=== PATIENT | female | born 1985 | race Caucasian/White ===

== ENCOUNTER 2022-04-10 21:03 | Emergency (ER) | payer OTHER, SELFPAY ==
[2022-04-10 21:12] VITALS: BP 130/74; PULSE 105; RESP 18; TEMP 36.4; O2SAT 98; BMI 40.2
[2022-04-10 21:50] VITALS: BP 125/70; PULSE 99; RESP 18; TEMP 36.4; O2SAT 98
--- NOTE | 2022-04-10 21:56 | ED.GENADULT ---
HPI - General Adult General Chief complaint: Unspecified Complaint, Adult Stated complaint: DIABETIC WITH SWELLING/DISCOLORATION RT FOOT/LEG Time Seen by Provider: 04/10/22 21:20 History of Present Illness HPI narrative: 36-year-old woman presenting to the emergency department with pain redness and swelling of the right great toe. She has also had some spreading redness tracking into the inner lower leg with pain in the upper thigh as well. Has not noticed rash up there. She has not had a fever. No purulent discharge. This just started today. Noticed a little bit of blood there as well. Underlying history of diabetes with neuropathy. She notes rather slow wound healing historically. My initial assessment is that she has encountered an ingrown nail. She says she has never struggled with this apparently before. No treatments attempted. Recently on antibiotics for a cellulitis related to hidradenitis suppurativa apparently. Successfully treated with Bactrim. She notes a history of allergy to cephalosporins and doxycycline Related Data Home Medications Medication Instructions Recorded Confirmed diabetic supplies, miscellan. 04/12/22 04/12/22 metformin 500 mg tablet 500 mg PO 04/12/22 04/12/22 Previous Rx's Medication Instructions Recorded ciprofloxacin HCl 500 mg tablet 500 mg PO BID #20 tabs 04/12/22 (Cipro) Allergies Allergy/AdvReac Type Severity Reaction Status Date / Time Cephalosporins Allergy Mild Rash Verified 02/19/22 11:06 doxycycline Allergy Unknown Verified 02/19/22 11:06 Review of Systems Status of ROS: Reports: 6 or more systems reviewed and unremarkable except as noted in History and below [facility] Medical History Anxiety and depression Diabetes mellitus, type 2 Surgical History History of bilateral ligation of fallopian tubes (05/23/13) History of section (08/17/11) History of section (05/23/13) History of dilation and curettage (08/17/11) Social History Smoking Status: Never smoker Do you use any of these nicotine containing products: None How often do you have a drink containing alcohol: never AUDIT-C Alcohol total score: 0 Non-prescribed substance use: denies use Exam Narrative: Exam Narrative: Pleasant and nad. Breathing easily. Cardiovascular with elevated heartrate. Skin is warm and dry.There is erythema about the right great toe and mild swelling along the medial periungual fold. The nail corners are visible though the middle aspect of the nail along this medial edge may be the problematic point. This mild erythema does unfortunately extend up the medial lower leg in a lymphangitic spread up 1/3 of the lower leg. There is no drainage around the nail edge. The IP joint does not seem discretely involved. Const: Vital Signs, click to edit/add: Vital Signs - 24 hr 04/10/22 21:12 Temperature 97.5 F L Pulse Rate [Right Pulse Oximeter] 105 H Respiratory Rate 18 Blood Pressure [Ri ght Upper Arm] 130/74 Pulse Oximetry 98 Oxygen Delivery Me thod Room Air Documenting provider has reviewed patient's vital signs: yes Course Course Hospital Course: I did discuss wedge nail resection as more definitive treatment; Ms. Aguayo hopes to defer this in part given her historic slow healing presumably in the setting of neuropathy. Vital Signs Vital signs: Initial Vital Signs Temperature 97.5 F L 04/10/22 21:12 Temperature Source Temporal Artery Scan 04/10/22 21:12 Pulse Rate 105 H 04/10/22 21:12 Respiratory Rate 18 04/10/22 21:12 Blood Pressure 130/74 04/10/22 21:12 Blood Pressure Mean 92 04/10/22 21:12 Pulse Oximetry 98 04/10/22 21:12 Oxygen Delivery Method 04/10/22 21:12 Vital Signs Temperature 97.5 F L 04/10/22 21:12 Pulse Rate 105 H 04/10/22 21:12 Respiratory Rate 18 04/10/22 21:12 Blood Pressure 130/74 04/10/22 21:12 Pulse Oximetry 98 04/10/22 21:12 Oxygen Delivery Method 04/10/22 21:12 Temperature 97.5 F L 04/10/22 22:20 Pulse Rate 99 04/10/22 22:20 Respiratory Rate 18 04/10/22 22:20 Blood Pressure 125/70 04/10/22 22:20 Pulse Oximetry 98 04/10/22 21:50 Oxygen Delivery Method 04/10/22 21:50 Medical Decision Making MDM Narrative Medical decision making narrative: Confirmed allergies. Both antibiotics to which she is allergic would be ideal. Amoxicillin might be enough with soaking to address the likely offending organisms though diabetes complicates this. Was recently on Bactrim. I don't think we have to move to IV antibiotics yet. Discharge Plan Discharge Clinical Impression: Ingrowing toenail, Cellulitis Patient Disposition: Home, Self-Care Condition: Stable Additional Instructions: Soak your foot in warm Epsom salt water or warm soapy water 2-3 times daily over the next 4 days or so. Elevate for comfort. Try to elevate at rest in general. Be seen for fever, marked increase in pain, swelling, redness. I would expect a little trajectory spread over the next 36 hours but then should be improving. I am anticipating continued problems with ingrown nail here. I appreciate your concern about having wedge resection but this may still need to happen sooner than later. It looks like generally you are preserving the corners of your nail edge when trimming but this is actually growing in I think in the middle of the nail itself. If you do get an inkling of ingrowing nail in the future, begin soaking your toe/foot at least daily and trying to expose/elevate the corner of that nail overnight with a slightly rolled-up small piece of cotton ball as discussed, removing then in the morning. Avoid wearing shoes that impact this area at this time. Flip flops probably ideal at this moment but this make your feet more vulnerable in the setting of neuropathy. Continue to check your feet daily for injury. Amoxicillin from [facility] Stay well hydrated. Take 1000 mg of amoxicillin for your 1st dose. Take amoxicillin for 8 days. Prescriptions: No Action metformin 500 mg tablet 500 mg PO (DME) diabetic supplies, miscellan. Misc See Rx Instructions .ROUTE Rx Instructions: As directed ciprofloxacin HCl [Cipro] 500 mg tablet 500 mg PO BID Qty: 20 0RF Follow Up/Referrals: Aidan Chávez MD [Primary Care Provider] - Stand Alone Forms: [employer] Info Instructions
[2022-04-10 22:20] VITALS: BP 125/70; PULSE 99; RESP 18; TEMP 36.4
== END 2022-04-10 22:20 | disposition home or self-care (01) ==
PROVIDERS: Emergency Provider Family Medicine; PCP Family Medicine
DX: L60.0 Ingrowing nail (principal); L03.031 Cellulitis of right toe
CPT/HCPCS: 99283

== ENCOUNTER 2022-04-12 13:09 | Outpatient (CLI) | payer OTHER, SELFPAY ==
[2022-04-12 16:10] LABS: Chloride* 100 mmol/L (96-114); Potassium* 4.5 mmol/L (3.6-5.1); Sodium* 137 mmol/L (135-149)
[2022-04-12 16:12] LABS: Creatinine* 0.7 mg/dL (0.5-1.5); Estimated Glomerular Filt Rate 116 ml/min
[2022-04-12 16:13] LABS: Blood Urea Nitrogen* 10 mg/dL (5-24); Calcium* 9.1 mg/dL (8.4-10.6); Carbon Dioxide* 25 mmol/L (20-32); Glucose* 236 mg/dL (60-115)
== END 2022-04-12 13:10 | disposition home or self-care (01) ==
LOC: NFLDREF 13:10
PROVIDERS: PCP Family Medicine; Visit Provider Family Medicine
DX: E11.9 Type 2 diabetes mellitus without complications (principal); L03.90 Cellulitis, unspecified
CPT/HCPCS: 80048

== ENCOUNTER 2022-05-11 21:02 | Emergency (ER) | payer OTHER, SELFPAY ==
[2022-05-11 21:12] VITALS: BP 134/87; PULSE 96; RESP 16; TEMP 36.9; O2SAT 98; BMI 38.8
--- NOTE | 2022-05-11 21:46 | ED.SKABFB ---
HPI - Skin/Abscess/Foreign Bdy General Chief complaint: Skin/Abscess/Foreign Body Stated complaint: Cellulitis Time Seen by Provider: 05/11/22 21:22 History of Present Illness HPI narrative: This 36-year-old female comes in with pain and redness with swelling in her right great toe. She states that this is been present for the past couple months. She finished an antibiotic that was prescribed for this now 15 days ago. She states that the redness in swelling did not go way with antibiotic treatment. She does not report any fevers. She does state that she has some anxiety and when it increases then she has nausea and vomiting. She did have some vomiting today. She also states that her blood glucose has been markedly elevated. She states that her glucometer reading today was 790. She has type 2 diabetes and is taking metformin. Related Data Home Medications Medication Instructions Recorded Confirmed diabetic supplies, miscellan. 04/12/22 04/21/22 Previous Rx's Medication Instructions Recorded metformin 1,000 mg tablet 1,000 mg PO BIDWMEAL #60 tabs 04/21/22 levofloxacin 500 mg tablet 500 mg PO DAILY 10 days #10 tabs 05/11/22 Allergies Allergy/AdvReac Type Severity Reaction Status Date / Time Cephalosporins Allergy Mild Rash Verified 05/11/22 21:20 doxycycline Allergy Unknown Verified 05/11/22 21:20 Review of Systems Status of ROS: Reports: 10 or more systems reviewed and unremarkable except as noted in History and below Narrative: Constitutional: No fevers, no weight gain or loss. Eyes: No discharge. No vision changes. HENT: No congestion, no sore throat, no ear pain. Cardiovascular: No chest pain, no palpitations. Respiratory: No shortness of breath, no wheezes, no cough. Gastrointestinal: No abdominal pain, no diarrhea. Nausea and vomiting. Genitourinary: No dysuria, no hematuria. Musculoskeletal: Right great toe redness, warmth, and swelling. Skin: No rashes, no pruritis. Neurological: No dizziness, weakness, sensory change, speech change. Endo/Heme/Allergies: No bruising or bleeding. No polydipsia. Pysch: no suicidality, no anxiety, no insomnia. All other systems reviewed and are negative. [facility] Medical History Anxiety and depression Diabetes mellitus, type 2 Surgical History History of bilateral ligation of fallopian tubes (05/23/13) History of section (08/17/11) History of section (05/23/13) History of dilation and curettage (08/17/11) Social History Smoking Status: Current every day smoker Do you use any of these nicotine containing products: None How often do you have a drink containing alcohol: never AUDIT-C Alcohol total score: 0 Non-prescribed substance use: denies use Little interest or pleasure in doing things: more than half the days Feeling down, depressed, or hopeless: more than half the days Exam Narrative: Exam Narrative: Constitutional: Well-developed, well-nourished, no acute distress. HEENT: Normocephalic, atraumatic. Neck: Normal range of motion. Nontender. Supple. Heart: Regular. No murmurs. Normal rate. Intact distal pulses. Lungs: Clear to auscultation. No chest discomfort. No wheezes, rhonchi, or rales. Abdomen: Normal bowel sounds. Nontender. No rebound tenderness. Genitalia: Deferred. Back: No midline tenderness. Normal range of motion. Extremities: Patient is able to move her right great toe does not have distinct increase in pain. There is erythema around the toe itself in extending into the distal portion of her foot along the 1st metatarsal. There is also associated warmth and swelling. There is no sign of skin breakdown or pointing abscess. Skin: Intact. No rash. Warm. No erythema or pallor. Neurologic: No altered sensation. No weakness. Alert and oriented. Psychiatric: No suicidality. No anxiety or depression. No insomnia. Nursing notes and vitals signs are reviewed. Const: Vital Signs, click to edit/add: Vital Signs - 24 hr 05/11/22 21:12 Temperature 98.5 F Pulse Rate [Right Pulse Oximeter] 96 Respiratory Rate 16 Blood Pressure [Ri ght Upper Arm] 134/87 Pulse Oximetry 98 Oxygen Delivery Me thod Room Air Course Vital Signs Vital signs: Initial Vital Signs Temperature 98.5 F 05/11/22 21:12 Temperature Source Temporal Artery Scan 05/11/22 21:12 Pulse Rate 96 05/11/22 21:12 Respiratory Rate 16 05/11/22 21:12 Blood Pressure 134/87 05/11/22 21:12 Blood Pressure Mean 102 05/11/22 21:12 Blood Pressure Position Sitting 05/11/22 21:12 Pulse Oximetry 98 05/11/22 21:12 Oxygen Delivery Method 05/11/22 21:12 Vital Signs Temperature 98.5 F 05/11/22 21:12 Pulse Rate 96 05/11/22 21:12 Respiratory Rate 16 05/11/22 21:12 Blood Pressure 134/87 05/11/22 21:12 Pulse Oximetry 98 05/11/22 21:12 Oxygen Delivery Method 05/11/22 21:12 Temperature 98.5 F 05/11/22 21:12 Pulse Rate 96 05/11/22 21:12 Respiratory Rate 16 05/11/22 21:12 Blood Pressure 134/87 05/11/22 21:12 Pulse Oximetry 98 05/11/22 21:12 Oxygen Delivery Method 05/11/22 21:12 MDM - Skin/Abscess/Foreign Bdy MDM Narrative Medical decision making narrative: This patient comes in with redness, warmth, and swelling of her great toe as described above. She states that she is on her feet 15 hours a day with her employment. She also has diabetes and reports that her glucose was rather high earlier today. Blood glucose here returns at around 240. This is no where close to which she measured at 790 and makes me question whether her glucometer is accurate. Her white count is slightly elevated. She is not showing signs of systemic infection or sepsis. The patient did receive an IV dose of Levaquin 500 mg. She also received Toradol 30 mg intravenously. She feels okay to return home. I did describe signs and symptoms that would indicate a need for return and re-evaluation. Lab Data Labs: Lab Results 05/11/22 05/11/22 Range/Units 22:00 22:00 WBC 11.64 H (4.50-11.00) K/uL RBC 4.98 (4.00-5.20) m/uL Hgb 14.7 (12.0-16.0) gm/dL Hct 42.7 (33.0-51.0) % MCV 86 (80-100) fL MCH 30 (26-34) pg MCHC 34 (32-36) gm/dL RDW Coeff of Alexandrea 13.2 (11.5-15.5) % Plt Count 137 L (140-440) K/uL Neut % (Auto) 60.9 (42.0-72.0) % Lymph % (Auto) 32.7 (20-44) % [place] % (Auto) 4.2 (0.0-11.0) % Eos % (Auto) 1.6 (0.0-7.0) % Baso % (Auto) 0.2 (0.0-3.0) % Neut # (Auto) 7.10 H (1.7-7.0) K/uL Lymph # (Auto) 3.80 H (0.90-2.90) K/uL [place] # (Auto) 0.50 (0.00-0.90) K/UL Eos # (Auto) 0.20 (0.00-0.50) K/uL Baso # (Auto) 0.00 (0.00-0.30) K/uL Abs Immat Gran (auto) 0.05 (0.00-0.30) K/uL Sodium 134 L (135-149) mmol/L Potassium 3.8 (3.6-5.1) mmol/L Chloride 99 (96-114) mmol/L Carbon Dioxide 25 (20-32) mmol/L BUN 12 (5-24) mg/dL Creatinine 0.5 (0.5-1.5) mg/dL Estimated Creat Clear 124.21 Estimated GFR 125 ml/min Glucose 241 H (60-115) mg/dL Calcium 9.2 (8.4-10.6) mg/dL Discharge Plan Discharge Clinical Impression: Abrasion of great toe, right, infected Patient Disposition: Home, Self-Care Condition: Stable Additional Instructions: Take medication as prescribed. Follow up with MD or return if not improving or worsening symptoms happen. Prescriptions: New levofloxacin 500 mg tablet 500 mg PO DAILY 10 Days Qty: 10 0RF No Action (DME) diabetic supplies, miscellan. Misc See Rx Instructions .Route Rx Instructions: As directed metformin 1,000 mg tablet 1,000 mg PO BIDWMEAL Qty: 60 5RF Follow Up/Referrals: Aidan Chávez MD [Primary Care Provider] - Stand Alone Forms: [email or web address] Info Instructions
[2022-05-11] MEDS: 0.9 % SODIUM CHLORIDE 1000 ml 1,000 ML IV (22:06)
--- OUTSIDE RECORDS SUMMARY | 2022-05-11 22:12 | XMS_ITS | Clinical Summary ---
:1985 Author Organization [employer] [facility] [place] [address] Care Team Providers Name Role Phone Pcp, No Primary Care Provider Unavailable Allergies Active Allergy Reactions Severity Noted Date Comments Cephalosporins Rash 03/13/2018 Doxycycline Hives 03/13/2018 Medications Medication Sig Dispensed Refills Start Date End Date Status metFORMIN 0 04/21/2022 Active (GLUCOPHAGE) 1,000 mg tablet sertraline Take 1 tablet 60 tablet 0 03/13/2018 Disc ontinued (ZOLOFT) 50 mg by mouth every 2 (*Patient states tabletIndications morning. X 1 no longer : Anxiety week, then taking/No t on increase to 2 sendin g facility tabs daily. list) hydrOXYzine HCl Take 1 tablet 40 tablet 0 03/13/2018 Discontinued (ATARAX) 25 mg by mouth every 2 (*Patient states tabletIndications 6 hours if n o longer : Anxiety needed for taking/No t on Anxiety. sending fa cility list) Active Problems No known active problems Encounters Date Type Specialty Care Team Description 05/05/2022 Telephone Guy Cobian, DME Sup ply ([facility]) 04/27/2022 Office Visit Guy Cobian, Consult (Right great toe, DPM resolved cellulitis/Bila teral diabetic foot c heck) 04/27/2022 Travel from Last 3 Months Family History Medical History Relation Name Comments Diabetes type I Father Heart failure Father Diabetes type II Mother Relation Name Status Comments Father Mother Social History Tobacco Use Types Packs/Day Years Used Date Current Every Day Smoker Smokeless Tobacco: Never Used Tobacco Cessation: Ready to Quit: No; Co unseling Given: Yes Sex Assigned at Date Recorded Not on file COVID-19 Exposure Response Date Recorded In the last 10 days, have you been in contact with No / Unsu re 04/27/2022 1:10 PM CDT someone who was confirmed or suspected to have Coronavirus/COVID-19? Obstetrics History Last Filed Vital Signs Vital Sign Reading Time Taken Comments Blood Pressure 127/82 04/27/2022 1:29 PM CDT Pulse 96 04/27/2022 1:29 PM CDT Temperature - - Respiratory Rate - - Oxygen Saturation 98% 04/27/2022 1:29 PM CDT Inhaled Oxygen Concentration - - Weight 96.3 kg (212 lb 3.2 oz) 04/27/2022 1:29 PM CDT Height 158.8 cm (5' 2.5) 03/13/2018 12:48 PM CDT Body Mass Index 38.19 03/13/2018 12:48 PM CDT Plan of Treatment Upcoming Encounters Date Type Specialty Care Team Description 05/13/2022 Office Visit Herb Cobian, DPM [address] [phone] (Wo rk) Health Maintenance Due Date Last Done Comments Tdap 1997 Hepatitis C screening for age 0512/21/2004 18-79 Tetanus booster 2006 BMI (ht and wt on same day) for 03/13/2019 03/13/2018 age 18+ Depression screening for age 12+ 03/13/2019 03/13/2018, COVID-19 vaccine series (3 - 05/07/2021 12/05/2020, 021 Booster for Pfizer series) Influenza for age 9-49 04/15/2022 Pap test for age 21-65 03/17/2024 03/17/2021, 03/17/2021, 10/10/2013, Additional history exists Results Not on filefrom Last 3 Months Insurance Payer Benefit Plan / Subscriber ID Effective Dates Phone Addre ss Type Group [facility] [id number] 2019-Eran [address] [facility] [place] [address] Care Teams Cannon Pinion Adjuster Relationship Specialty Start Date End Date Pcp, No PCP - General 12/20/16 .
[2022-05-11] MEDS: KETOROLAC 30 MG/ML inj IVP (22:21)
[2022-05-11 22:49] LABS: Chloride* 99 mmol/L (96-114); Potassium* 3.8 mmol/L (3.6-5.1); Sodium* 134 mmol/L (135-149)
[2022-05-11 22:52] LABS: Carbon Dioxide* 25 mmol/L (20-32); Creatinine* 0.5 mg/dL (0.5-1.5); Est. Creatinine Clearance* 124.21; Estimated Glomerular Filt Rate 125 ml/min
[2022-05-11 22:53] LABS: Blood Urea Nitrogen* 12 mg/dL (5-24); Calcium* 9.2 mg/dL (8.4-10.6); Glucose* 241 mg/dL (60-115)
[2022-05-11 23:08] LABS: Basophils Percent Auto 0.2 % (0.0-3.0); Eosinophils Percent Auto 1.6 % (0.0-7.0); Hematocrit 42.7 % (33.0-51.0); Hemoglobin* 14.7 gm/dL (12.0-16.0); Immature Granulocytes Abs Auto 0.05 K/uL (0.00-0.30); Lymphocytes Percent Auto 32.7 % (20-44); Mean Corpuscular HGB Conc 34 gm/dL (32-36); Mean Corpuscular Hemoglobin 30 pg (26-34); Mean Corpuscular Volume 86 fL (80-100); Monocytes Percent Auto 4.2 % (0.0-11.0); Neutrophils Percent Auto 60.9 % (42.0-72.0); Platelet Count* 137 K/uL (140-440); RDW Coefficient of Variation % 13.2 % (11.5-15.5); Red Blood Count 4.98 m/uL (4.00-5.20); White Blood Count* 11.64 K/uL (4.50-11.00)
[2022-05-11 23:12] LABS: Slide Review Reflex No
== END 2022-05-11 23:42 | disposition home or self-care (01) ==
PROVIDERS: Emergency Provider Emergency Medicine Emergency Medical Services; PCP Family Medicine
DX: S90.411A Abrasion, right great toe, initial encounter (principal)
CPT/HCPCS: 36415; 80048; 85025; 87040; 96365; 96375; 99284; J1885; J1956; J7030

== ENCOUNTER 2023-04-05 09:18 | Emergency (ER) | payer OTHER, SELFPAY ==
[2023-04-05 09:24] VITALS: BP 168/96; PULSE 97; RESP 18; TEMP 36.6; O2SAT 98; BMI 40.2
--- NOTE | 2023-04-05 09:55 | ED.SKABFB ---
HPI - Skin/Abscess/Foreign Bdy General Time Seen by Provider: 09:55 Date Seen: 04/05/23 Chief complaint: Skin/Abscess/Foreign Body Stated complaint: abscess on upper thigh Time Seen by Provider: 04/05/23 09:47 Source: patient and RN notes reviewed Mode of arrival: ambulatory Limitations: no limitations History of Present Illness HPI narrative: Patient is a 37-year-old female coming in with complaint of right groin pain and irritation. She has not had any fevers. She has never had any MRSA. She does have hiradenitis suppurativa. She has been off metformin for about 6 months. She was unable to get into the clinic. Review of her medication allergies reveals cephalosporins and doxycline. Related Data Home Medications Medication Instructions Recorded Confirmed diabetic supplies, miscellan. 04/12/22 04/21/22 Previous Rx's Medication Instructions Recorded metformin 1,000 mg tablet 1,000 mg PO BIDWMEAL #60 tabs 04/21/22 amoxicillin 875 mg-potassium 1 tab PO BID #20 tabs 04/05/23 clavulanate 125 mg tablet Allergies Allergy/AdvReac Type Severity Reaction Status Date / Time Cephalosporins Allergy Mild Rash Verified 04/05/23 09:24 doxycycline Allergy Unknown Verified 04/05/23 09:24 Review of Systems Narrative: As per HPI. [facility] Medical History Anxiety and depression ?F41.9 - Anxiety disorder, unspecified (ICD-10) ?F32.A - Depression, unspecified (ICD-10) Diabetes mellitus, type 2 ?E11.9 - Type 2 diabetes mellitus without complications (ICD-10) Surgical History History of dilation and curettage (08/17/11) ?Z98.890 - Other specified postprocedural states (ICD-10) History of section (05/23/13) ?Z98.891 - History of uterine scar from previous surgery (ICD-10) History of section (08/17/11) ?Z98.891 - History of uterine scar from previous surgery (ICD-10) History of bilateral ligation of fallopian tubes (05/23/13) ?Z98.51 - Tubal ligation status (ICD-10) Social History Smoking Status: Current every day smoker Do you use any of these nicotine containing products: None How often do you have a drink containing alcohol: never AUDIT-C Alcohol total score: 0 Non-prescribed substance use: denies use Little interest or pleasure in doing things: more than half the days Feeling down, depressed, or hopeless: more than half the days Exam Const: Vital Signs, click to edit/add: Vital Signs - 24 hr 04/05/23 09:24 Temperature 98 F Pulse Rate [Pulse Oximeter] 97 Respiratory Rate 18 Blood Pressure [Ri ght Upper Arm] 168/96 H Pulse Oximetry 98 Oxygen Delivery Me thod Room Air Documenting provider has reviewed patient's vital signs: yes Common normals: no apparent distress, average body habitus, oriented x3, no limitations, healthy appearing and alert General appearance: cooperative, comfortable, well kempt and well developed HENMT: Common normals: normocephalic, head/scalp atraumatic and hearing grossly normal bilaterally Head and scalp: normocephalic and atraumatic Extremity: Other: She has a erythematous indurated area in the right inner thigh, no fluctuance. It is tender. It is about 6-8 cm in length, probably about 4 cm in width. Neuro: Common normals: oriented x3 Sensorium/orientation: alert Psych: Appearance: well kempt Course Course Hospital Course: Reviewed with patient potential for imaging to see if there is a deeper abscess. She did consider this but has decline. She has no history of MRSA. Discussed antibiotics and warm pack with close follow-up if this is worsening or develops abscess pocket. It sounds if she really does know when it is drainable. She has had issues with this given her underlying hiradenitis. She is afebrile, hemodynamically stable. I do not think any labs are necessary or are going to change our course at this point. Vital Signs Vital signs: Initial Vital Signs Temperature 98 F 04/05/23 09:24 Temperature Source Temporal Artery Scan 04/05/23 09:24 Pulse Rate 97 04/05/23 09:24 Respiratory Rate 18 04/05/23 09:24 Blood Pressure 168/96 H 04/05/23 09:24 Blood Pressure Mean 120 H 04/05/23 09:24 Blood Pressure Position Sitting 04/05/23 09:24 Pulse Oximetry 98 04/05/23 09:24 Oxygen Delivery Method Room Air 04/05/23 09:24 Vital Signs Temperature 98 F 04/05/23 09:24 Pulse Rate 97 04/05/23 09:24 Respiratory Rate 18 04/05/23 09:24 Blood Pressure 168/96 H 04/05/23 09:24 Pulse Oximetry 98 04/05/23 09:24 Oxygen Delivery Method Room Air 04/05/23 09:24 Temperature 98 F 04/05/23 09:24 Pulse Rate 97 04/05/23 09:24 Respiratory Rate 18 04/05/23 09:24 Blood Pressure 168/96 H 04/05/23 09:24 Pulse Oximetry 98 04/05/23 09:24 Oxygen Delivery Method Room Air 04/05/23 09:24 Discharge Plan Discharge Clinical Impression: Cellulitis Patient Disposition: Home, Self-Care Condition: Stable Instructions: Cellulitis (ED), Warm Compress or Soak (ED) Additional Instructions: Start oral antibiotics as soon as possible. Use warm compresses as much as able to to help with the infection. Have provided a note to be off work for the next 2 days. If this is at all worsening, does develop into an abscess area that could be drained, do recommend re-evaluation. Absolutely return if you develop fevers, the area of infection is extending or you are feeling worse. Recommend recheck in clinic within the next couple of days, can also review metformin/diabetes at that follow-up visit. Adequate control of diabetes is essential for your health and also in managing infections. Activity Level: Activity as Tolerated Prescriptions: New amoxicillin-pot clavulanate 875-125 mg tablet 1 tab PO BID Qty: 20 0RF No Action (DME) diabetic supplies, miscellan. Misc See Rx Instructions .Route Rx Instructions: As directed metformin 1,000 mg tablet 1,000 mg PO BIDWMEAL Qty: 60 5RF Follow Up/Referrals: Aidan Chávez MD [Primary Care Provider] - Stand Alone Forms: [facility] Info Instructions
== END 2023-04-05 11:17 | disposition home or self-care (01) ==
PROVIDERS: Emergency Provider Family Medicine; PCP Family Medicine
DX: L03.115 Cellulitis of right lower limb (principal)
CPT/HCPCS: 99283; 99284

== ENCOUNTER 2023-07-26 13:07 | Outpatient (CLI) | payer OTHER, SELFPAY | END 2023-07-26 13:08 | disposition home or self-care (01) | LOC: NFLDREF 07-28 09:28 | PROVIDERS: PCP Family Medicine; Referring Provider Family Medicine; Visit Provider Family Medicine | DX: E11.9 Type 2 diabetes mellitus without complications (principal); E78.5 Hyperlipidemia, unspecified; E66.9 Obesity, unspecified | CPT/HCPCS: 80053; 80061; 82043; 82570 ==

== ENCOUNTER 2023-09-20 18:03 | Emergency (ER) | payer OTHER, SELFPAY ==
[2023-09-20 18:39] VITALS: BP 145/83; PULSE 88; RESP 18; TEMP 36.6; O2SAT 99; BMI 40.2
--- NOTE | 2023-09-20 21:14 | CRLHL7_ITS ---
For Patients: As a result of the Century Cures Act, medical imaging exams and procedure reports are released immediately into your electronic medical record. You may view this report before your referring provider. If you have questions, please contact your health care provider. INDICATION: Headache. TECHNIQUE: CT head without contrast. COMPARISON: None. FINDINGS: CSF spaces: Within normal limits for age. Brain parenchyma: The leos-white differentiation is maintained. No sign of mass, hemorrhage, or midline shift. Skull base and calvarium: The visualized paranasal sinuses and mastoid air cells demonstrate no acute or significant findings. The visualized orbits are grossly unremarkable. No skull fractures. IMPRESSION: No acute intracranial abnormality. Please note that all CT scans at this facility use dose modulation, iterative reconstruction, and/or weight-based dosing when appropriate to reduce radiation dose to as low as reasonably achievable. Dictated by Aguilar Davison MD @ 09/20/2023 10:44:10 PM (Electronically Signed)
--- OUTSIDE RECORDS SUMMARY | 2023-09-20 21:18 | XMS_ITS | Clinical Summary ---
Author Name Unknown Organization [employer] [facility] Address [place] [address] Care Team Providers Care Store Shopper Name Role Phone Pcp, No Primary Care Provider Unavailabl e Allergies Active Allergy Reactions Criticality Noted Date Comments Cephalosporins Rash 03/13/2018 Doxycycline Hives 03/13/2018 Medications Medication Sig Dispensed Refills Start Date End Date Status metFORMIN (GLUCOPHAGE) 1,000 mg tablet 0 04/21/2022 Active Active Problems No known active problems Family History Medical History Relation Name Comments Diabetes type I Father Heart failure Father Diabetes type II Mother Relation Name Status Comments Father Mother Social History Tobacco Use Types Packs/Day Years Used Date Smoking Tobacco: Every Day Smokeless Tobacco: Never Tobacco Cessation:Ready to Q uit: No; Counseling Given: Yes PHQ-2 Answer Date Recorded PHQ-2 Score 6 10/16/2018 Sex and Gender Information Value Date Recorded Sex Assigned at Not on file Gender Identity Not on file Sexual Orientation Not on file Obstetrics History Last Filed Vital Signs Vital Sign Reading Time Taken Comments Blood Pressure 127/82 04/27/2022 1:29 PM CDT Pulse 96 04/27/2022 1:29 PM CDT Temperature - - Respiratory Rate - - Oxygen Saturation 98% 04/27/2022 1:29 PM CDT Inhaled Oxygen Concentration - - Weight 96.3 kg (212 lb 3.2 oz) 04/27/2022 1:29 P M CDT Height 158.8 cm (5' 2.5) 03/13/2018 12:48 PM CD T Body Mass Index 38.19 03/13/2018 12:48 PM CDT Plan of Treatment Health Maintenance Due Date Last Done Comments Tdap 1997 HIV for age 15-65 2001 Hepatitis C screening for age 18-79 2004 Tetanus booster 2006 BMI (ht and wt on same day) for age 18+ 03/13/2019 03/13/2018 Depression screening for age 12+ 03/13/2019 03/13/2018, 03/13/2018 COVID-19 vaccine series ( season) 2023 12/05/2020, 11/15/2020 Influenza for age 9-49 04/15/2023 Pap test for age 21-65 03/17/2024 , 03/17/2021, 10/10/2013, Additional history exists Pneumococcal series for age 6-64 Aged Out No longer eligible based on patient's age to complete this topic Care Teams Store Shopper Relationship Specialty Start Date End Date Pcp, No . PCP - General 12/20/16
[2023-09-20 21:37] LABS: Basophils Absolute Auto 0.02 K/uL (0.00-0.30); Basophils Percent Auto 0.2 % (0.0-3.0); Eosinophils Absolute Auto 0.41 K/uL (0.00-0.50); Hematocrit 43.5 % (33.0-51.0); Hemoglobin* 14.7 gm/dL (12.0-16.0); Immature Granulocytes Abs Auto 0.07 K/uL (0.00-0.30); Immature Granulocytes Pct Auto 0.7 %; Lymphocytes Absolute Auto 4.38 K/uL (0.90-2.90); Lymphocytes Percent Auto 42.2 % (20-44); Mean Corpuscular HGB Conc 34 gm/dL (32-36); Mean Corpuscular Hemoglobin 29 pg (26-34); Mean Corpuscular Volume 86 fL (80-100); Monocytes Percent Auto 4.5 % (0.0-11.0); Neutrophils Absolute Auto 5.02 K/uL (1.7-7.0); Neutrophils Percent Auto 48.4 % (42.0-72.0); Platelet Count* 173 K/uL (140-440); RDW Coefficient of Variation % 13.6 % (11.5-15.5); Red Blood Count 5.07 m/uL (4.00-5.20); White Blood Count* 10.37 K/uL (4.50-11.00)
[2023-09-20 21:39] LABS: Slide Review Reflex No
[2023-09-20 21:51] LABS: Chloride* 101 mmol/L (96-114); Potassium* 3.9 mmol/L (3.6-5.1); Sodium* 136 mmol/L (135-149)
[2023-09-20 21:54] LABS: Anion Gap 11 mEq/L (7-15); Blood Urea Nitrogen* 11 mg/dL (5-24); Carbon Dioxide* 24 mmol/L (20-32); Creatinine* 0.4 mg/dL (0.5-1.5); Est. Creatinine Clearance* 153.78; Estimated Glomerular Filt Rate 131 ml/min
[2023-09-20 21:55] LABS: Calcium* 9.1 mg/dL (8.4-10.6); Glucose* 207 mg/dL (60-115)
[2023-09-20 21:57] LABS: C Reactive Protein* 2.4 mg/dL (0.5-1.0)
[2023-09-20] MEDS: diphenhydrAMINE 50 MG/ML inj 25 MG IVP (21:58)
[2023-09-20] MEDS: KETOROLAC 15 MG/ML inj IVP (21:58)
[2023-09-20] MEDS: ONDANSETRON 2 MG/ML inj 4 MG IVP (21:59)
[2023-09-20] MEDS: 0.9 % SODIUM CHLORIDE 1000 ml 1,000 ML IV (21:59)
[2023-09-20 22:26] LABS: Erythrocyte SedimentationRate* 14 mm/hr (2-20)
--- NOTE | 2023-09-20 23:18 | ED_ITS ---
HPI - General Adult General Date Seen: 09/20/23 Chief complaint: Extremity Pain/Injury, Lower Stated complaint: High BS, vision issues, headache Time Seen by Provider: 09/20/23 21:03 Source: patient, RN notes reviewed and old records reviewed Mode of arrival: ambulatory Limitations: no limitations History of Present Illness HPI narrative: Patient is a 37-year-old woman who comes in for a couple of reasons. 1., she says for the past month she has been having cramping pain in her calves and burning pain on the bottom of her feet. She does have a longstanding history of poorly controlled diabetes and wonders about neuropathy. She also says for the past month or so she has had blurred vision and dizziness. She saw an eye doctor at the beginning of August and says that they noted a little bit of diabetic retinopathy but not significant. No other findings per her report. She says yesterday she developed headache on the right side of her head and she has had associated photophobia nausea vomiting today. She denies a prior history of migraine. Headache was gradual in onset and has persisted throughout the day today. She has not had fevers, sore throat, sinus congestion or pain, cough, or other upper respiratory symptoms. She has not had any unusual swelling or redness in her legs, does not describe significant pain with ambulation, symptoms bother her mostly at night when she is laying in bed although they were present during the day as well. She also expresses frustration about controlling her blood sugars. She had been off of medication completely for about a year when she saw primary care in July of 2023. She was started on metformin at that time, did not have any significant improvement in her blood sugars and so was started on long-acting insulin at her last appointment at the beginning of August. She tells me that she is now out to 52 units of long-acting insulin once daily and still has not noted any change in her blood sugars. Apparently the next step is to add short-acting insulin, but she is very frustrated that nothing seems to be working. Related Data Home Medications Medication Instructions Recorded Confirmed diabetic supplies, miscellan. 04/12/22 08/24/23 Previous Rx's Medication Instructions Recorded atorvastatin 20 mg tablet 20 mg PO QPM #90 tabs 07/27/23 flash glucose sensor (FreeStyle #1 ea 07/27/23 Cristela 2 Sensor kit) metformin 1,000 mg tablet 1,000 mg PO BIDWMEAL #180 tabs 07/27/23 insulin glargine 100 unit/mL (3 10 - 40 unit (0.1 - 0.4 mL) subcut 08/24/23 mL) subcutaneous pen (Lantus QDAY #15 mL Solostar U-100 Insulin) pen needle, diabetic 31 gauge x #100 ea 08/24/23 3/ (1st Tier Unifine Pentips Plus) gabapentin 100 mg capsule 100 mg PO TID #90 caps 09/20/23 Allergies Allergy/AdvReac Type Severity Reaction Status Date / Time Cephalosporins Allergy Mild Rash Verified 08/24/23 15:17 doxycycline Allergy Unknown Verified 08/24/23 15:17 Review of Systems Status of ROS: Reports: 10 or more systems reviewed and unremarkable except as noted in History and below [facility] Medical History Anxiety and depression ?F41.9 - Anxiety disorder, unspecified (ICD-10) ?F32.A - Depression, unspecified (ICD-10) Diabetes mellitus, type 2 ?E11.9 - Type 2 diabetes mellitus without complications (ICD-10) Surgical History History of dilation and curettage (08/17/11) ?Z98.890 - Other specified postprocedural states (ICD-10) History of section (05/23/13) ?Z98.891 - History of uterine scar from previous surgery (ICD-10) History of section (08/17/11) ?Z98.891 - History of uterine scar from previous surgery (ICD-10) History of bilateral ligation of fallopian tubes (05/23/13) ?Z98.51 - Tubal ligation status (ICD-10) Social History Smoking Status: Current every day smoker Do you use any of these nicotine containing products: None How often do you have a drink containing alcohol: never AUDIT-C Alcohol total score: 0 Non-prescribed substance use: denies use Little interest or pleasure in doing things: more than half the days Feeling down, depressed, or hopeless: more than half the days Exam Narrative: Exam Narrative: Vital signs as noted above. In general, an alert, well-appearing patient. Head: Normocephalic, atraumatic. Eyes: Pupils are equal reactive. Extraocular movements are full. Conjunctivae are normal. Optic discs are sharp bilaterally. ENT: Mucous membranes are moist. Throat is normal. Neck: Supple without lymphadenopathy. Heart: Regular rate and rhythm. No murmur or rub. Lungs: Clear bilaterally. No increased work of breathing, crackles or wheezes. Abdomen: Soft and nontender. No organomegaly. Extremities: Well perfused. No edema. No calf tenderness. Pulses intact. Neurologic: Patient is alert and oriented to person and place. Speech is fluent. Face is symmetric. Moves all extremities equally. Affect: Normal. Skin: Warm and dry. Well perfused. Const: Vital Signs, click to edit/add: Vital Signs - 24 hr 09/20/23 18:39 Temperature 97.9 F Pulse Rate [Pulse Oximeter] 88 Respiratory Rate 18 Blood Pressure [Ri ght Upper Arm] 145/83 H Pulse Oximetry 99 Oxygen Delivery Me thod Room Air Course Course ED Course: Firstly, we discussed her blood sugar management. I have encouraged her to proceed with short acting insulin as recommended by her primary doctor. If despite adequate doses of both long-acting and short-acting insulin she is not finding any improvement in her hemoglobin H 1 C, then I do think it would be reasonable to request a referral to endocrinology for further help. With regard to her legs, her exam is normal, I see no evidence of DVT or cellulitis, her symptoms do not sound consistent with claudication. I suspect she does have some peripheral neuropathy likely from diabetes and recommended a trial of gabapentin. With regard to her headache, it is unilateral, associated with photophobia and nausea, has certainly migraine sending features. She was treated with IV fluids, Toradol, Benadryl and Zofran with improvement. I did do a CT of the head given her recent problems with dizziness and blurred vision. By my review this is normal. Read as normal by Radiology as well. I checked basic labs, CBC shows normal white blood cell count 10.4, hemoglobin is 14.7. Metabolic panel is normal aside from elevated blood sugar of 207. Her creatinine is 0.4. CRP mildly elevated at 2.4. She is stable for discharge home at this time. Primary care follow-up next week as planned. Return for worsening. Gabapentin 100 mg t.i.d. to start, can titrate up with primary care next week if needed. Vital Signs Vital signs: Initial Vital Signs Temperature 97.9 F 09/20/23 18:39 Temperature Source Temporal Artery Scan 09/20/23 18:39 Pulse Rate 88 09/20/23 18:39 Pulse Rhythm Regular 09/20/23 18:39 Respiratory Rate 18 09/20/23 18:39 Blood Pressure 145/83 H 09/20/23 18:39 Blood Pressure Mean 103 09/20/23 18:39 Blood Pressure Position Sitting 09/20/23 18:39 Pulse Oximetry 99 09/20/23 18:39 Oxygen Delivery Method Room Air 09/20/23 18:39 Vital Signs Temperature 97.9 F 09/20/23 18:39 Pulse Rate 88 09/20/23 18:39 Respiratory Rate 18 09/20/23 18:39 Blood Pressure 145/83 H 09/20/23 18:39 Pulse Oximetry 99 09/20/23 18:39 Oxygen Delivery Method Room Air 09/20/23 18:39 Temperature 97.9 F 09/20/23 18:39 Pulse Rate 88 09/20/23 18:39 Respiratory Rate 18 09/20/23 18:39 Blood Pressure 145/83 H 09/20/23 18:39 Pulse Oximetry 99 09/20/23 18:39 Oxygen Delivery Method Room Air 09/20/23 18:39 Medications Administered Medications: Discontinued Medications Generic Name Dose Route Start Last Admin Trade Name Freq PRN Reason Stop Dose Admin Diphenhydramine HCl 25 mg 09/20/23 21:14 09/20/23 21:58 Diphenhydramine 50 Mg/Ml Inj IVP 09/20/23 21:15 25 mg ONCE ONE Administration Sodium Chloride 1,000 mls @ 1,000 mls/hr 09/20/23 21:15 09/20/23 22:52 0.9 % Sodium Chloride 1000 Ml IV 09/20/23 22:14 Infused .Q1H JOSH Infusion Ketorolac Tromethamine 15 mg 09/20/23 21:14 09/20/23 21:58 Ketorolac 15 Mg/Ml Inj IVP 09/20/23 21:15 15 mg ONCE ONE Administration Ondansetron HCl 4 mg 09/20/23 21:14 09/20/23 21:59 Ondansetron 2 Mg/Ml Inj IVP 09/20/23 21:15 4 mg ONCE ONE Administration Medical Decision Making Lab Data Labs: Lab Results 09/20/23 Range/Units 21:25 WBC 10.37 (4.50-11.00) K/uL RBC 5.07 (4.00-5.20) m/uL Hgb 14.7 (12.0-16.0) gm/dL Hct 43.5 (33.0-51.0) % MCV 86 (80-100) fL MCH 29 (26-34) pg MCHC 34 (32-36) gm/dL RDW Coeff of Alexandrea 13.6 (11.5-15.5) % Plt Count 173 (140-440) K/uL Neut % (Auto) 48.4 (42.0-72.0) % Lymph % (Auto) 42.2 (20-44) % Frio % (Auto) 4.5 (0.0-11.0) % Eos % (Auto) 4.0 (0.0-7.0) % Baso % (Auto) 0.2 (0.0-3.0) % Neut # (Auto) 5.02 (1.7-7.0) K/uL Lymph # (Auto) 4.38 H (0.90-2.90) K/uL Frio # (Auto) 0.50 (0.00-0.90) K/UL Eos # (Auto) 0.41 (0.00-0.50) K/uL Baso # (Auto) 0.02 (0.00-0.30) K/uL Abs Immat Gran (auto) 0.07 (0.00-0.30) K/uL Imm/Tot Granulo (auto) 0.7 % ESR 14 (2-20) mm/hr Sodium 136 (135-149) mmol/L Potassium 3.9 (3.6-5.1) mmol/L Chloride 101 (96-114) mmol/L Carbon Dioxide 24 (20-32) mmol/L Anion Gap 11 (7-15) mEq/L BUN 11 (5-24) mg/dL Creatinine 0.4 L (0.5-1.5) mg/dL Estimated Creat Clear 153.78 Estimated GFR 131 ml/min Glucose 207 H (60-115) mg/dL Calcium 9.1 (8.4-10.6) mg/dL C-Reactive Protein 2.4 H (0.5-1.0) mg/dL Discharge Plan Discharge Clinical Impression: Headache, Peripheral neuropathy Patient Disposition: Home, Self-Care Condition: Improved Instructions: Acute Headache (DC), Peripheral Neuropathy (ED) Additional Instructions: Start gabapentin as prescribed. Follow up with Dr. Chávez as planned and discuss further insulin dosing. If you continue to have elevated blood sugars despite baseline long-acting insulin as well as short-acting insulin, it would be reasonable to request a referral to Endocrinology for further help with managing your blood sugars. Your head CT is normal tonight. Your kidney function is also normal. Your blood sugar was 207 here. Activity Level: No Restrictions Discharge Diet: Regular Prescriptions: New gabapentin 100 mg capsule 100 mg PO TID Qty: 90 2RF No Action metformin 1,000 mg tablet 1,000 mg PO BIDWMEAL Qty: 180 3RF atorvastatin 20 mg tablet 20 mg PO QPM Qty: 90 3RF (DME) FreeStyle Cristela 2 Sensor Kit See Rx Instructions .Route Qty: 1 11RF Rx Instructions: As directed (DME) diabetic supplies, miscellan. Misc See Rx Instructions .Route Rx Instructions: As directed insulin glargine [Lantus Solostar U-100 Insulin] 100 unit/mL (3 mL) insulin pen 10 - 40 unit subcut QDAY Qty: 15 3RF Rx Instructions: Start 10 units daily and increase by 2 units every 2 days until fasting glucose is <130 (DME) pen needle, diabetic [1st Tier Unifine Pentips Plus] 31 gauge x 3/16 needle See Rx Instructions .Route Qty: 100 3RF Rx Instructions: As directed Follow Up/Referrals: Aidan Chávez MD [Primary Care Provider] - Stand Alone Forms: [employer] Info Instructions
== END 2023-09-20 23:00 | disposition home or self-care (01) ==
PROVIDERS: Emergency Provider Emergency Medicine; PCP Family Medicine
DX: R51.9 Headache, unspecified (principal); G62.9 Polyneuropathy, unspecified
CPT/HCPCS: 36415; 70450; 80048; 85025; 85651; 86140; 96374; 96375; 99284; J1200; J1885; J2405; J7030

== ENCOUNTER 2024-04-18 09:33 | Outpatient (CLI) | payer OTHER, SELFPAY ==
--- OUTSIDE RECORDS SUMMARY | 2024-04-18 09:35 | XMS_ITS | Clinical Summary ---
Author Organization [employer] [facility] Address [place], [place] [address] Care Team Providers Care Custom Decorating Consultant Name Role Phone Pcp, No Primary Care Provider Unavailabl e Allergies Active Allergy Reactions Criticality Noted Date Comments Cephalosporins Rash 03/13/2018 Doxycycline Hives 03/13/2018 Medications Medication Sig Dispensed Refills Start Date End Date Status metFORMIN (GLUCOPHAGE) 1,000 mg tablet 04/21/2022 Active Active Problems No known active [...] screening for age 12+ 03/13/2019 03/13/2018, 03/13/2018 Pap test for age 21-65 03/17/2024 , 03/17/2021, 10/10/2013, Additional history exists COVID-19 vaccine series ( season) 2024 12/05/2020, 11/15/2020 Influenza for age 9-49 04/15/2024 Pneumococcal series for age 6-64 Aged Out No longer eligible based on patient's age to complete this topic Procedures Procedure Name Priority Date/Time Associated Diagnosis Comments MECHANICAL ENGINEERING OFFICER THIN PREP PAP SCREEN IMAGED Routine 03/17/2021 12:00 PM CDT from Last 3 Months or Most Recently Relevant to Health Maintenance Results * (ABNORMAL) MECHANICAL ENGINEERING OFFICER THIN PREP PAP SCREEN IMAGED (03/17/2021 12:00 PM CDT) Case Report Gynecologic Cytology Report ? Case: [id number] ? Authorizing Provider: ??Alix Mosher MD ?? Collected: ? 03/17/2021 1200 ? Ordering Location: ? [facility] ?Received: ?03/18/2021 0754 ? First Screen: ?Ervin Veloz ? Pathologist: ? Mesha Meek MD ? Specimen: ?MECHANICAL ENGINEERING OFFICER ThinPrep Vial Screening, Cervical/Vagina l ? 03/31/2021 9:06 AM [facility] INTERPRETATION/ RESULT ATYPICAL SQUAMOUS CELLS OF UNDETERMINED SIGNIFICANCE (ASCUS)(A) (none) 03/31/2021 9:06 AM [facility] IMEN ADEQUACY Satisfactory for evaluation Endocervical component present 03/31/2021 9:06 AM [facility] HPV REQUEST HPV and PAP 03/31/2021 9:06 AM [facility] Date of LMP 12/24/2020 03/31/2021 9:06 AM [facility] Additional Information 03/31/2021 9:06 AM [facility] Comment: Interpreted at [facility] - [address], [place] [address] Automated Review Successful 03/31/2021 9:06 AM [facility] Comment:Specimen processed s uccessfully by automated sheet metal welder device, ThinPrep Imaging System, [email or web address] ANCILLARY TESTING MECHANICAL ENGINEERING OFFICER HPV Ordered, Please see separate report 03/31/2021 9:06 AM [facility] Note The pap test is a screening technique, not a diagnostic procedure. It is used primarily to screen for squamous cancers and precursor lesions. Published studies have shown that it is subject to both false negative and false positive results. The pap test should not be used as the sole means to diagnose or exclude pre-malignant and malignant lesions. 03/31/2021 9:06 AM CDT [facility] Other (Cervical/Vagina l) 03/17/2021 12:00 PM CDT 03/18/2021 7:54 AM CDT Alix Mosher MD PATHOLOGY/CYTOLOG Y [facility] [address] [place] [address], from Last 3 Months or Most Recently Relevant to Health Maintenance Care Teams Custom Decorating Consultant Relationship Specialty Start Date End Date Pcp, No . PCP - General 12/20/16
== END 2024-04-18 09:34 | disposition home or self-care (01) ==
LOC: NFLDREF 09:34
PROVIDERS: PCP Family Medicine; Visit Provider Internal Medicine
DX: E11.65 Type 2 diabetes mellitus with hyperglycemia (principal); Z79.4 Long term (current) use of insulin
CPT/HCPCS: 82043; 82570

== ENCOUNTER 2024-07-24 13:15 | Outpatient (CLI) | payer OTHER, SELFPAY | END 2024-07-24 13:16 | disposition home or self-care (01) | LOC: NFLDREF 07-26 13:31 | PROVIDERS: PCP Internal Medicine; Referring Provider Internal Medicine; Visit Provider Internal Medicine | DX: E11.9 Type 2 diabetes mellitus without complications (principal); E78.5 Hyperlipidemia, unspecified | CPT/HCPCS: 80061; 82043; 82570 ==

== ENCOUNTER 2024-08-22 23:02 | Emergency (ER) | payer OTHER, SELFPAY ==
[2024-08-22 23:15] VITALS: BP 154/90; PULSE 83; RESP 16; TEMP 36.7; O2SAT 99; BMI 40.2
--- OUTSIDE RECORDS SUMMARY | 2024-08-23 00:52 | XMS_ITS | Clinical Summary ---
Author Organization [employer] [facility] Address [place], [place] [address] Care Team Providers Care Supervisor Jewelry Department Name Role Phone Pcp, No Primary Care Provider Unavailabl e Allergies Active Allergy Reactions Criticality Noted Date Comments Cephalosporins Rash 03/13/2018 Doxycycline Hives 03/13/2018 Medications metFORMIN (GLUCOPHAGE) 1,000 mg tablet 04/21/2022 Active [...] Answer Date Recorded PHQ-2 Score 6 10/16/2018 Comments Unknown Sex and Gender Information Value Date Recorded Sex Assigned at Not on file Legal Sex Female 7:05 AM [employer] WORK[employer] Gender Identity Not on file Sexual Orientation [...] 10/10/2013, Additional history exists COVID-19 vaccine series (2023- season) 2024 12/05/2020, 11/15/2020 Influenza for age 9-49 04/15/2024 Pneumococcal series for age 6-49 Aged Out No longer eligible based on patient's age to complete this topic Procedures Procedure Name Priority Date/Time Associated Diagnosis Comments MAINTENANCE SHOP MANAGER THIN PREP PAP SCREEN IMAGED Routine 03/17/2021 12:00 PM CDT from Last 3 Months or Most Recently Relevant to Health Maintenance Results * (ABNORMAL) MAINTENANCE SHOP MANAGER THIN PREP PAP SCREEN IMAGED (03/17/2021 12:00 PM CDT) Case Report Gynecologic Cytology Report Case: [id number] Authorizing Provider: Alix Mosher MD Collected: 03/17/2021 1200 Ordering Location: [facility] Received: 03/18/2021 0754 First Screen: Ervin Veloz Pathologist: Mesha Meek MD Specimen: MAINTENANCE SHOP MANAGER ThinPrep Vial Screening, Cervical/Vagina l 03/31/2021 9:06 AM CDT [facility] INTERPRETATION/ RESULT ATYPICAL SQUAMOUS CELLS OF UNDETERMINED SIGNIFICANCE (ASCUS)(A) (none) 03/31/2021 9:06 AM CDT [facility] IMEN ADEQUACY Satisfactory for evaluation Endocervical component present 03/31/2021 9:06 AM CDT [facility] HPV REQUEST HPV and PAP 03/31/2021 9:06 AM CDT [facility] Date of LMP 12/24/2020 03/31/2021 9:06 AM CDT [facility] Additional Information 03/31/2021 9:06 AM T [facility] Comment: Interpreted at [facility] - [address], [place] [address] Automated Review Successful 03/31/2021 9:06 AM T [facility] Comment:Specimen processed s uccessfully by automated cash management officer device, ThinPrep Imaging System, [employer] ANCILLARY TESTING MAINTENANCE SHOP MANAGER HPV Ordered, Please see separate report 03/31/2021 9:06 AM T [facility] Note The pap test is a screening technique, not a diagnostic procedure. It is used primarily to screen for squamous cancers and precursor lesions. Published studies have shown that it is subject to both false negative and false positive results. The pap test should not be used as the sole means to diagnose or exclude pre-malignant and malignant lesions. 03/31/2021 9:06 AM T [facility] Other (Cervical/Vagina l) 03/17/2021 12:00 PM CDT 03/18/2021 7:54 AM CDT Alix Mosher MD PATHOLOGY/CYTOLOGY Final Result [facility] [address] [place] [address], [place] from Last 3 Months or Most Recently Relevant to Health Maintenance [place] [address] [address] Care Teams Supervisor Jewelry Department Relationship Specialty Start Date End Date Pcp, No . PCP - General 12/20/16
--- OUTSIDE RECORDS SUMMARY | 2024-08-23 00:52 | XMS_ITS | Continuity of Care Document ---
Author Name [facility] User [email or web address] Address Unknown Organization Unknown Address Unknown Procedures FILTER APPLIED:Only known Procedures with Onset Date within the last 5 years Procedure Date Procedure Provider Alex ken Information Status COMPLETE CBC W/AUTO DIFF WBC (45220) Completed TX/PRO/DX INJ NEW DRUG ADDON (77399) Completed THER/PROPH/DIAG INJ IV PUSH (47965) Completed RBC SED RATE NONAUTOMATED (66589) Completed CT HEAD/BRAIN W/O DYE (17604) Completed METABOLIC PANEL TOTAL CA (80650) Completed EMERGENCY DEPT VISIT MOD MDM (86217) Completed C-REACTIVE PROTEIN (54748) Completed ROUTINE VENIPUNCTURE (75628) Completed ASSAY OF URINE CREATININE (73891) Completed UR ALBUMIN QUANTITATIVE (06233) Completed LIPID PANEL (95417) Comp leted COMPREHEN METABOLIC PANEL (87561) Completed Encounters FILTER APPLIED:Only known Encounters with Admission Date within the last 5 years Encounter Location Admission Discharge Billing Code Grades 7 And 8 Visiting Teacher Elinor cav[facility]os [facility]
[2024-08-23] MEDS: SULFA/TRIMETHOPRIM 800/160 1 TAB PO (01:01)
--- NOTE | 2024-08-23 05:00 | ED.GENADULT ---
HPI - General Adult General Date Seen: 08/23/24 Chief complaint: Neck Injury/Pain Stated complaint: abscess on neck/difficult to swallow Time Seen by Provider: 08/23/24 00:55 Source: patient Mode of arrival: ambulatory Limitations: no limitations History of Present Illness HPI narrative: Patient is a 38-year-old poorly controlled type 2 diabetic who comes in with an erythematous swollen lump on her anterior neck. She was seen in urgent care for five days ago for this lump and was told that it was her hidradenitis suppurativa. She was not given any antibiotics. She is instructed to go home and apply hot packs. The area has gotten more painful and swollen each day. She denies fevers or chills. She has pain with swallowing. She has had previous lesions in her axilla and groin that have had to be drained. She was recently on sulfa off for a diabetic foot ulcer but has been off the antibiotics for over a week. She gets yeast infections every time she takes antibiotics. He tells me that her blood sugars have been between 304 100. Her Lantus dose was recently increased and she sometimes takes as many as 30 units of NovoLog and her blood sugars barely come down. Her PCP is Dr. Jacinto. 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 In the past she has drained previous abscesses on her own. Her A1c has been over 12% for well over a year. Related Data Home Medications ?Medication ?Instructions ?Recorded ?Confirmed diabetic supplies, miscellan. 04/12/22 08/18/24 Previous Rx's ?Medication ?Instructions ?Recorded metformin 1,000 mg tablet 1,000 mg PO BIDWMEAL #180 tabs 07/27/23 pen needle, diabetic 31 gauge x #100 ea 08/24/2310/28 (1st Tier Unifine Pentips Plus) flash glucose sensor (FreeStyle #10 ea 04/25/24 Cristela 2 Sensor kit) nystatin 100,000 unit/gram topical 1 applic topical BID #30 grams 05/09/24 cream fluconazole 150 mg tablet 150 mg PO QWEEK 4 doses #4 tabs 06/19/24 insulin aspart U-100 100 unit/mL 10 - 20 unit (0.1 - 0.2 mL) subcut 07/23/24 (3 mL) subcutaneous pen (Novolog BIDWMEAL #15 mL FlexPen U-100 Insulin aspart) insulin glargine 100 unit/mL (3 85 unit (0.85 mL) subcut QDAY #30 08/10/24 mL) subcutaneous pen (Lantus mL Solostar U-100 Insulin) fluconazole 100 mg tablet 100 mg PO .QOD #7 tabs 08/23/24 sulfamethoxazole 800 1 tab PO BID #20 tabs 08/23/24 mg-trimethoprim 160 mg tablet (Bactrim DS) Allergies Allergy/AdvReac Type Severity Reaction Status Date / Time Cephalosporins Allergy Mild Rash Verified 08/18/24 12:55 doxycycline Allergy Unknown Verified 08/18/24 12:55 Review of Systems Narrative: Chronic painful diabetic neuropathy. Recurrent yeast infections. Review of systems is outlined above otherwise noted to be negative. PFSH PFS Medical History Hypertension ?I10 - Essential (primary) hypertension (ICD-10) Anxiety and depression ?F41.9 - Anxiety disorder, unspecified (ICD-10) ?F32.A - Depression, unspecified (ICD-10) Diabetes mellitus, type 2 ?E11.9 - Type 2 diabetes mellitus without complications (ICD-10) Surgical History History of dilation and curettage (08/17/11) ?Z98.890 - Other specified postprocedural states (ICD-10) History of section (05/23/13) ?Z98.891 - History of uterine scar from previous surgery (ICD-10) History of section (08/17/11) ?Z98.891 - History of uterine scar from previous surgery (ICD-10) History of bilateral ligation of fallopian tubes (05/23/13) ?Z98.51 - Tubal ligation status (ICD-10) Social History Smoking Status: Current every day smoker Do you use any of these nicotine containing products: None How often do you have a drink containing alcohol: never AUDIT-C Alcohol total score: 0 Non-prescribed substance use: denies use Exam Narrative: Exam Narrative: Vitals noted. HEENT: Conjunctiva clear. Tympanic membranes are pearly white bilaterally. Posterior pharynx is clear without erythema or exudate. Neck is supple without adenopathy, thyromegaly. Lungs: Clear to auscultation in all roberto. No wheezes, rales, rhonchi. Heart: Regular rate and rhythm without murmur. Abdomen: Soft and nontender. No guarding, rigidity, rebound. Bowel sounds are normal. No palpable masses. Extremities: No cyanosis or edema. Good distal pulses. Skin: His an abscess just above the sternal notch that is 2 cm x 1.5 cm. This is superficial. No significant regional adenopathy. It is hot, indurated, tender. Neurologic: She has dense stocking-glove distribution neuropathy. Const: Vital Signs, click to edit/add: Vital Signs - 24 hr 08/22/24 23:15 Temperature 98.1 F Pulse Rate [Pulse Oximeter] 83 Respiratory Rate 16 Blood Pressure [Ri ght Upper Arm] 154/90 H Pulse Oximetry 99 Oxygen Delivery Me thod Room Air Course Course ED Course: Patient was seen and examined. The lesion on her neck is obviously an abscess. It is not in the typical location for a hidradenitis suppurativa lesion. We discussed that this will not get better with antibiotics alone and she is in agreement to have this opened and drained. Without anesthesia I made a small opening with a #11 blade. Approximately 5-10 mL of pus was drained from the abscess. A culture is taken. She tolerated this well. A sterile dressing is applied. Vital Signs Vital signs: Initial Vital Signs Temperature 98.1 F 08/22/24 23:15 Temperature Source Temporal Artery Scan 08/22/24 23:15 Pulse Rate 83 08/22/24 23:15 Respiratory Rate 16 08/22/24 23:15 Blood Pressure 154/90 H 08/22/24 23:15 Blood Pressure Mean 111 H 08/22/24 23:15 Blood Pressure Position Sitting 08/22/24 23:15 Pulse Oximetry 99 08/22/24 23:15 Oxygen Delivery Method Room Air 08/22/24 23:15 Vital Signs Temperature 98.1 F 08/22/24 23:15 Pulse Rate 83 08/22/24 23:15 Respiratory Rate 16 08/22/24 23:15 Blood Pressure 154/90 H 08/22/24 23:15 Pulse Oximetry 99 08/22/24 23:15 Oxygen Delivery Method Room Air 08/22/24 23:15 Temperature 98.1 F 08/22/24 23:15 Pulse Rate 83 08/22/24 23:15 Respiratory Rate 16 08/22/24 23:15 Blood Pressure 154/90 H 08/22/24 23:15 Pulse Oximetry 99 08/22/24 23:15 Oxygen Delivery Method Room Air 08/22/24 23:15 Medications Administered Medications: Discontinued Medications Generic Name Dose Route Start Last Admin Trade Name Thomas PRN Reason Stop Dose Admin Trimethoprim/Sulfamethoxazole 1 tab 08/23/24 00:42 08/23/24 01:01 Sulfa/Trimethoprim 800/160 1 Tab PO 08/23/24 00:43 1 tab ONCE ONE Administration Discharge Plan Discharge Clinical Impression: Abscess of skin of neck, Type 2 diabetes mellitus Patient Disposition: Home, Self-Care Condition: Improved Additional Instructions: Hot packs and gentle squeezing. Tylenol and Ibuprofen for pain. Bactrim DS twice daily for 10 days. Diflucan for yeast infection. Follow up with PCP in 1 week. Increase Lantus to 50 units twice a day. You will need increased amounts of Novolog until this infection is better. Prescriptions: New fluconazole 100 mg tablet 100 mg PO .QOD Qty: 7 0RF sulfamethoxazole-trimethoprim [Bactrim DS] 800-160 mg tablet 1 tab PO BID Qty: 20 0RF No Action metformin 1,000 mg tablet 1,000 mg PO BIDWMEAL Qty: 180 3RF fluconazole 150 mg tablet 150 mg PO QWEEK Qty: 4 0RF Rx Instructions: Take one tablet every week for four weeks. (DME) diabetic supplies, miscellan. Misc See Rx Instructions .Route Rx Instructions: As directed (DME) pen needle, diabetic [1st Tier Unifine Pentips Plus] 31 gauge x 3/16 needle See Rx Instructions .Route Qty: 100 3RF Rx Instructions: As directed (DME) FreeStyle Cristela 2 Sensor Kit See Rx Instructions .Route Qty: 10 1RF Rx Instructions: As directed nystatin 100,000 unit/gram cream 1 applic topical BID Qty: 30 0RF insulin aspart U-100 [Novolog FlexPen U-100 Insulin] 100 unit/mL (3 mL) insulin pen 10 - 20 unit subcut BIDWMEAL Qty: 15 2RF insulin glargine [Lantus Solostar U-100 Insulin] 100 unit/mL (3 mL) insulin pen 85 unit subcut QDAY Qty: 30 1RF Follow Up/Referrals: Dennis Jacinto MD [Primary Care Provider] - Stand Alone Forms: MyHealth Info Instructions
== END 2024-08-23 01:00 | disposition home or self-care (01) ==
PROVIDERS: Emergency Provider Family Medicine; PCP Internal Medicine
DX: L02.11 Cutaneous abscess of neck (principal); E11.9 Type 2 diabetes mellitus without complications
CPT/HCPCS: 10060; 87070; 99282; 99283; A9270

== ENCOUNTER 2024-11-07 12:35 | Outpatient (CLI) | payer OTHER, SELFPAY | END 2024-11-07 12:36 | disposition home or self-care (01) | PROVIDERS: PCP Internal Medicine; Visit Provider Family Medicine | DX: I10 Essential (primary) hypertension (principal); E78.5 Hyperlipidemia, unspecified; E11.29 Type 2 diabetes mellitus with other diabetic kidney complication; E66.9 Obesity, unspecified; R80.9 Proteinuria, unspecified; Z79.4 Long term (current) use of insulin | CPT/HCPCS: 80048; 83690; 83735 ==

== ENCOUNTER 2025-01-23 12:55 | Outpatient (CLI) | payer OTHER, SELFPAY | END 2025-01-23 12:56 | disposition home or self-care (01) | LOC: FBOREF 12:56 | PROVIDERS: PCP Family Medicine; Visit Provider Family Medicine | DX: I10 Essential (primary) hypertension (principal) | CPT/HCPCS: 80048 ==

== ENCOUNTER 2025-02-12 23:22 | Emergency (ER) | payer OTHER, SELFPAY ==
--- OUTSIDE RECORDS SUMMARY | 2025-02-12 23:24 | XMS_ITS | Clinical Summary ---
Author Organization [facility] Address [address] [place] [id number] Care Team Providers Care Oncology Pharmacist Name Role Phone Pcp, No Primary Care [...] on file Legal Sex Female 7:05 AM [employer] Gender Identity Not on file Sexual Orientation [...] Health Maintenance Due Date Last Done Comments Tetanus booster 1997 HIV for age 15-65 2001 Hepatitis C screening for age 18-79 2004 Hepatitis B series for 19+ (1 of 3 - 19+ 3-dose series) 2005 BMI (ht and wt on same day) for age 18+ 03/13/2019 03/13/2018 Depression screening for age 12+ 03/13/2019 03/13/2018, 03/13/2018 Pap test for age 21-65 03/17/2024 , 03/17/2021, 10/10/2013, Additional history exists COVID-19 vaccine series (2023- season) 2024 12/05/2020, 11/15/2020 Influenza Vaccine (#1) 2025 Pneumococcal series for age 6-49 Aged Out No longer eligible based on patient's age to complete this topic Procedures Procedure Name Priority Date/Time Associated Diagnosis Comments HEART COORDINATOR THIN PREP PAP SCREEN IMAGED Routine 03/17/2021 12:00 PM CDT from Last 3 Months or Most Recently Relevant to Health Maintenance Results * (ABNORMAL) HEART COORDINATOR THIN PREP PAP SCREEN IMAGED (03/17/2021 12:00 PM CDT) Case Report Gynecologic Cytology Report Case: [id number] Authorizing Provider: Alix Mosher MD Collected: 03/17/2021 1200 Ordering Location: [facility] Received: 03/18/2021 0754 First Screen: Ervin Veloz Pathologist: Mesha Meek MD Specimen: HEART COORDINATOR ThinPrep Vial Screening, Cervical/Vagina l 03/31/2021 9:06 AM CDT [facility] INTERPRETATION/ RESULT ATYPICAL SQUAMOUS CELLS OF UNDETERMINED SIGNIFICANCE (ASCUS)(A) (none) 03/31/2021 9:06 AM CDT [facility] at 0905 CDT SPECIMEN ADEQUACY Satisfactory for evaluation Endocervical component present 03/31/2021 9:06 AM CDT [facility] HPV REQUEST HPV and PAP 03/31/2021 9:06 AM CDT [facility] Date of LMP 12/24/2020 03/31/2021 9:06 AM CDT [facility] Additional Information 03/31/2021 9:06 AM T [facility] Comment: Interpreted at [facility] - [address], [place] [address] Automated Review Successful 03/31/2021 9:06 AM T [facility] Comment:Specimen processed s uccessfully by automated ramp boss device, ThinPrep Imaging System, [employer] ANCILLARY TESTING HEART COORDINATOR HPV Ordered, Please see separate report 03/31/2021 9:06 AM T [facility] Note The pap test is a [...] and malignant lesions. 03/31/2021 9:06 AM T [facility] Other (Cervical/Vagina l) 03/17/2021 12:00 PM CDT 03/18/2021 7:54 AM CDT us Alix Mosher MD PATHOLOGY/CYTOLOGY Final Result [facility] [address] [place] [address], [place] from Last 3 Months or Most Recently Relevant to Health Maintenance Insurance [facility] Care Teams Oncology Pharmacist Relationship Specialty Start Date End Date Pcp, No . PCP - General 12/20/16
[2025-02-12 23:31] VITALS: BP 178/97; PULSE 87; RESP 16; TEMP 35.6; O2SAT 98; BMI 39.3
--- NOTE | 2025-02-12 23:36 | ED_ITS ---
HPI - General Adult General Time Seen by Provider: 23:36 Date Seen: 02/12/25 Chief complaint: Hypertension Stated complaint: 224/158 BP Time Seen by Provider: 02/12/25 23:35 Source: patient Mode of arrival: ambulatory Limitations: no limitations History of Present Illness HPI narrative: 31-year-old female who comes in today with elevated blood pressure. Patient h as a history of diabetes and a history high blood pressure. She has had headache for couple of days but no other symptoms. Related Data Previous Rx's ?Medication ?Instructions ?Recorded pen needle, diabetic 31 gauge x #100 ea 08/24/2310/28 (1st Tier Unifine Pentips Plus) insulin aspart U-100 100 unit/mL 25 unit (0.25 mL) sub cut TID #60 mL 11/07/24 (3 mL) subcutaneous pen (Novolog FlexPen U-100 Insulin aspart) insulin glargine 100 unit/mL (3 50 unit (0.5 mL) subcu t BID #75 mL 11/07/24 mL) subcutaneous pen (Lantus Solostar U-100 Insulin) losartan 50 mg tablet 50 mg PO QDAY #90 tabs 11/07 metformin 500 mg tablet,extended 1,000 mg (2 x 500 mg) PO BID #360 11/07/24 release 24 hr tabs blood-glucose sensor (FreeStyle #6 ea 01/23/25 Cristela 3 Plus Sensor device) semaglutide 1 mg/dose (4 mg/3 mL) 1 mg (0.75 mL) subcu t QWEEK #3 mL 01/23/25 subcutaneous pen injector terbinafine HCl 250 mg tablet 250 mg PO DAILY #7 tabs 01/23/25 Allergies Allergy/AdvReac Type Severity Reaction Status Date / Time Cephalosporins Allergy Mild Rash Verified 02/12/25 23:34 doxycycline Allergy Unknown Verified 02/12/25 23:34 [facility] Medical History Onychomycosis ?B35.1 - Tinea unguium (ICD-10) Tobacco use (08/17/11) ?Z72.0 - Tobacco use (ICD-10) Hidradenitis suppurativa ?L73.2 - Hidradenitis suppurativa (ICD-10) Spontaneous (08/17/11) ?O03.9 - Complete or unspecified spontaneous without complication (ICD-10) Gestational diabetes (08/17/11) ?O24.419 - Gestational diabetes mellitus in , unspecified control (ICD-10) Major depression, recurrent ?F33.9 - Major depressive disorder, recurrent, unspecified (ICD-10) Generalized anxiety disorder ?F41.1 - Generalized anxiety disorder (ICD-10) Abnormal Pap smear of cervix (08/17/11) ?R87.619 - Unspecified abnormal cytological findings in specimens from cervix uteri (ICD-10) Microalbuminuria due to type 2 diabetes mellitus ?E11.29 - Type 2 diabetes mellitus with other diabetic kidney complication (ICD-10) ?R80.9 - Proteinuria, unspecified (ICD-10) Primary hypertension ?I10 - Essential (primary) hypertension (ICD-10) 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 - Other obesity due to excess calories (ICD-10) Type 2 diabetes mellitus, with long-term current use of insulin ?E11.9 - Type 2 diabetes mellitus without complications (ICD-10) ?Z79.4 - FDC (current) use of insulin (ICD-10) Surgical History History of dilation and curettage (08/17/11) ?Z98.890 - Other specified postprocedural states (ICD-10) History of section (05/23/13) ?Z98.891 - History of uterine scar from previous surgery (ICD-10) History of section (08/17/11) ?Z98.891 - History of uterine scar from previous surgery (ICD-10) History of bilateral ligation of fallopian tubes (05/23/13) ?Z98.51 - Tubal ligation status (ICD-10) Social History What is your current living situation?: I presently have a place to live In the past 12 months, utilities in danger of being shut off: no In past 12 months, lack of transportation kept you from medical appts, meetings, work, or getting things needed for daily living: no In the past 12 mos, have been you worried that your food would run out before you had money to buy more?: never true In the past 12 mos, the food you bought just didn't last and you didn't have money to buy more?: never true Smoking Status: Current every day smoker Do you use any of these nicotine containing products: None How often do you have a drink containing alcohol: never AUDIT-C Alcohol total score: 0 Non-prescribed substance use: denies use How often does anyone, including family, friends and others, physically hurt you : never How often does anyone, including family, friends and others, insult or talk down to you: rarely How often does anyone, including family, friends and others, threaten you with harm: never How often does anyone, including family, friends and others, scream or curse at you: rarely Health Related Social Needs: Other personal risk factors, not elsewhere classified (Z91.89) Exam Const: Vital Signs, click to edit/add: Vital Signs - 24 hr 02/12/25 23:31 Temperature 96.1 F L Pulse Rate [Pulse Oximeter] 87 Respiratory Rate 16 Blood Pressure [Ri ght Upper Arm] 178/97 H Pulse Oximetry 98 Oxygen Delivery Me thod Room Air Course Course ED Course: reviewed most recent primary care visit from October 2024 when patient was seen for diabetes and high blood pressure, at that time was prescribed losartan. Vital Signs Vital signs: Initial Vital Signs Temperature 96.1 F L 02/12/25 23:31 Temperature Source Temporal Artery Scan 02/12/25 23:31 Pulse Rate 87 02/12/25 23:31 Respiratory Rate 16 02/12/25 23:31 Blood Pressure 178/97 H 02/12/25 23:31 Blood Pressure Mean 124 H 02/12/25 23:31 Pulse Oximetry 98 02/12/25 23:31 Oxygen Delivery Method Room Air 02/12/25 23:31 Vital Signs Temperature 96.1 F L 02/12/25 23:31 Pulse Rate 87 02/12/25 23:31 Respiratory Rate 16 02/12/25 23:31 Blood Pressure 178/97 H 02/12/25 23:31 Pulse Oximetry 98 02/12/25 23:31 Oxygen Delivery Method Room Air 02/12/25 23:31 Temperature 96.1 F L 02/12/25 23:31 Pulse Rate 84 02/12/25 23:46 Respiratory Rate 18 02/12/25 23:46 Blood Pressure 151/97 H 02/12/25 23:46 Pulse Oximetry 96 02/12/25 23:46 Oxygen Delivery Method Room Air 02/12/25 23:46 Discharge Plan Discharge Clinical Impression: Primary hypertension Patient Disposition: Home, Self-Care Condition: Stable Instructions: How to Take a Blood Pressure Reading (ED), Hypertension (ED) Additional Instructions: Follow-up with your primary care doctor in 1 week. Check your blood pressure once a day and write it down. If the top number is consistently over 140 for the next couple of days, increase her losartan to 2 tablets once a day and follow up with primary care provider. Activity Level: Activity as Tolerated Discharge Diet: Regular Prescriptions: No Action terbinafine HCl 250 mg tablet 250 mg PO DAILY Qty: 7 5RF Rx Instructions: 1 QD x 7 days, repeat monthly x 6 months semaglutide 1 mg/dose (4 mg/3 mL) pen injector 1 mg subcut QWEEK Qty: 3 1RF (DME) FreeStyle Cristela 3 Plus Sensor Device See Rx Instructions .Route Qty: 6 3RF Rx Instructions: As directed (DME) pen needle, diabetic [1st Tier Unifine Pentips Plus] 31 gauge x 3/16 needle See Rx Instructions .Route Qty: 100 3RF Rx Instructions: As directed metformin 500 mg tablet extended release 24 hr 1,000 mg PO BID Qty: 360 3RF losartan 50 mg tablet 50 mg PO QDAY Qty: 90 3RF insulin aspart U-100 [Novolog FlexPen U-100 Insulin] 100 unit/mL (3 mL) insulin pen 25 unit subcut TID Qty: 60 3RF insulin glargine [Lantus Solostar U-100 Insulin] 100 unit/mL (3 mL) insulin pen 50 unit subcut BID Qty: 75 3RF Follow Up/Referrals: Michele Tyson MD [Primary Care Provider, Family Practice] - 7 Days Stand Alone Forms: MyHealth Info Instructions
[2025-02-12 23:38] VITALS: BP 173/94; PULSE 84; O2SAT 97
[2025-02-12 23:39] VITALS: PULSE 84; O2SAT 98
[2025-02-12 23:45] VITALS: PULSE 87; O2SAT 97
[2025-02-12 23:46] VITALS: BP 151/97; PULSE 84; RESP 18; O2SAT 96
== END 2025-02-12 23:54 | disposition home or self-care (01) ==
LOC: ED 23:51
PROVIDERS: Emergency Provider Family Medicine; PCP Family Medicine
DX: I10 Essential (primary) hypertension (principal); R51.9 Headache, unspecified; E11.9 Type 2 diabetes mellitus without complications; Z79.4 Long term (current) use of insulin; Z79.899 Other long term (current) drug therapy
CPT/HCPCS: 99283; 99284